=== PATIENT | female | born 1935 | race African-American/Black ===

== ENCOUNTER 2018-02-16 10:42 | Emergency (ER) | payer MEDICARE, MEDICAID ==
[~2018-02-16] VITALS: Ht 160 cm; Wt 77.1 kg
[2018-02-16 10:42] VITALS: BP 0/0
[2018-02-16] MEDS ORDERED: CALCIUM CHLOR(10%) 100MG/ML 10ML SYRINGE IV ONE (10:43)
[2018-02-16] MEDS ORDERED: SODIUM BICARBONATE 8.4% INJ 50ML SYRINGE IV ONE (10:43)
[2018-02-16] MEDS ORDERED: EPINEPHrine HCL 1 MG/10 ML SYRG IV ONE (10:43)
[2018-02-16] MEDS ORDERED: SODIUM BICARBONATE 8.4% INJ 50ML SYRINGE ONE (10:50)
[2018-02-16] MEDS ORDERED: EPINEPHrine HCL 1 MG/10 ML SYRG ONE (10:54)
== END 2018-02-16 17:06 | disposition expired ==
LOC: EDBD 10:42 → ER 10:42
DX: I46.9 Cardiac arrest, cause unspecified (principal); R41.82 Altered mental status, unspecified; I10 Essential (primary) hypertension; E11.9 Type 2 diabetes mellitus without complications; Z86.73 Personal history of transient ischemic attack (TIA), and cerebral infarction without residual deficits
CPT/HCPCS: 92950; 99285; J0171